=== PATIENT | female | born 1970 | race Caucasian/White ===

== ENCOUNTER → 2024-02-02 08:52 | Outpatient (REF) | payer BC, SELFPAY ==
[2024-02-02 09:50] LABS: ALT (SGPT) 22 U/L (0-35); AST (SGOT) 22 U/L (14-36); Alkaline Phosphatase 91 U/L (38-126); Blood Urea Nitrogen 10 mg/dl (7-17); Calcium 9.2 mg/dl (8.4-10.2); Carbon Dioxide 25 mmol/L (22-30); Chloride 104 mmol/L (98-107); Glucose 159 mg/dl (70-99); HDL Cholesterol 42 mg/dl; Potassium 4.6 mmol/L (3.5-5.1); Sodium 138 mmol/L (135-145); Total Bilirubin 0.8 mg/dl (0.2-1.3); eGFR > 60.00
[2024-02-02 10:27] LABS: TSH 2.21 uIU/ml (0.47-4.68)
[2024-02-02 10:41] LABS: Total Cholesterol 331 mg/dl (50-199)
[2024-02-02 10:49] LABS: Triglyceride 1043 mg/dl (10-149)
[2024-02-02 11:13] LABS: LDL Cholesterol, Direct 52 mg/dl
[2024-02-02 13:47] LABS: Vitamin D, 25-OH*** 17.3 ng/mL (30-80)
[2024-02-03 08:59] LABS: Glycohemoglobin (HgbA1c) 7.4 % (4.0-5.6)
== END ==
LOC: REG 08:52
PROVIDERS: ATTENDING PHYSICIAN Family Medicine
DX: E08.00 Diabetes mellitus due to underlying condition with hyperosmolarity without nonketotic hyperglycemic-hyperosmolar coma (NKHHC) (principal); E11.9 Type 2 diabetes mellitus without complications; E55.9 Vitamin D deficiency, unspecified; Z00.01 Encounter for general adult medical examination with abnormal findings; R53.83 Other fatigue
CPT/HCPCS: 36415; 80053; 80061; 82306; 83036; 83721; 84443

== ENCOUNTER → 2024-03-10 08:14 | Outpatient (REF) | payer BC, SELFPAY | LOC: WDC 08:14 | PROVIDERS: ATTENDING PHYSICIAN Family Medicine | DX: Z12.31 Encounter for screening mammogram for malignant neoplasm of breast (principal) | CPT/HCPCS: 77063; 77067 ==

== ENCOUNTER → 2024-05-24 08:53 | Outpatient (REF) | payer BC, SELFPAY ==
[2024-05-24 10:04] LABS: ALT (SGPT) 28 U/L (0-35); AST (SGOT) 26 U/L (14-36); Albumin 4.3 g/dl (3.5-5.0); Alkaline Phosphatase 59 U/L (38-126); Blood Urea Nitrogen 10 mg/dl (7-17); Calcium 9.4 mg/dl (8.4-10.2); Carbon Dioxide 28 mmol/L (22-30); Chloride 107 mmol/L (98-107); Glucose 120 mg/dl (70-99); HDL Cholesterol 58 mg/dl; LDL Cholesterol, Calculated 100 mg/dl; Potassium 4.5 mmol/L (3.5-5.1); Sodium 145 mmol/L (135-145); Total Bilirubin 0.4 mg/dl (0.2-1.3); Total Cholesterol 182 mg/dl (50-199); Total Protein 7.4 g/dl (6.3-8.2); Triglyceride 124 mg/dl (10-149); Very Low Density Lipoprotein 24 mg/dl (0-30); eGFR > 60.00
[2024-05-24 10:39] LABS: Glycohemoglobin (HgbA1c) 6.4 % (4.0-5.6)
== END ==
LOC: REG 08:53
PROVIDERS: ATTENDING PHYSICIAN Family Medicine
DX: E78.2 Mixed hyperlipidemia (principal); E11.59 Type 2 diabetes mellitus with other circulatory complications
CPT/HCPCS: 36415; 80053; 80061; 83036

== ENCOUNTER → 2024-09-18 20:26 | Outpatient (REF) | payer BC, SELFPAY | LOC: MRI 3T 20:26 | PROVIDERS: ATTENDING PHYSICIAN Specialist; FAMILY PHYSICIAN Family Medicine | DX: M25.561 Pain in right knee (principal) | CPT/HCPCS: 73721 ==

== ENCOUNTER 2024-11-03 06:05 | Day surgery (SDC) | payer BC, SELFPAY ==
--- NOTE | 2024-09-29 13:18 | CM ---
CM reviewed medical records. CM confirmed demographics. Patient lives independently with . Patient does not have a history of VN or SNF. Patient does not rely on any assistive devices at this time. [place] does have a two level home and
complains of difficulty negotiating stairs due to pain. Patient is active with her PCP. Patient uses [facility] [place]. [facility] Patient was given information on outpatient PT services at [facility] .
Plan: Home with [facility] and then transition to Outpatient [facility] Rehab services.
[2024-10-10 14:00] VITALS: BMI 31.3
[2024-10-10 14:09] LABS: Hemoglobin 11.6 g/dL (12.0-16.0); Mean Corp Hgb Conc. 34.1 g/dL (33.0-37.0); Mean Corpuscular Hgb 30.4 pg (27.0-31.0); Mean Corpuscular Volume 89.2 fL (81.0-99.0); Mean Platelet Volume 11.5 fL (7.4-10.4); Platelet Count 362 10^3/uL (130-400); Red Blood Cell Count 3.81 10^6/uL (4.20-5.40); Red Cell Dist. Width 14.1 % (11.5-14.5); White Blood Cell Count 7.8 10^3/uL (4.8-10.8)
[2024-10-10 14:25] LABS: ALT (SGPT) 33 U/L (0-35); AST (SGOT) 23 U/L (14-36); Alkaline Phosphatase 50 U/L (38-126); Blood Urea Nitrogen 14 mg/dl (7-17); Calcium 9.6 mg/dl (8.4-10.2); Carbon Dioxide 27 mmol/L (22-30); Chloride 109 mmol/L (98-107); Estimated Creatinine Clearance 101 ml/min; Glucose 104 mg/dl (70-99); Potassium 4.6 mmol/L (3.5-5.1); Sodium 144 mmol/L (135-145); Total Bilirubin 0.5 mg/dl (0.2-1.3); eGFR > 60.00
[2024-10-10 15:49] VITALS: BMI 31.3
[2024-10-11 08:47] LABS: Glycohemoglobin (HgbA1c) 6.1 % (4.0-5.6)
--- NOTE | 2024-10-15 10:24 | VNURNOTE ---
Patient is scheduled for an elective R TKA on 11/03 - she is a same day patient with Dr Ortiz. Spoke with patient prior to surgery. Introduced role of [facility] VN Liaison. Patient reports that she lives with her spouse in a MULTI story home.
There are 0 steps to enter and a flight of steps to the second floor.
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 She currently functions independently. She has a rolling walker.
PCP is Dr Kelton Kearns .
Discussed [facility] joint protocol and post surgical plans.
Reviewed that she will have VN services initially and will then start outpatient PT.
Patient selects [facility] VN for home care needs and will go to the [facility] at for outpatient PT, start date TBD. Advised patient to call outpt PT and request start date end for the of surgical week (11/06 or 11/07).
Patient is in agreement with plan and states that her spouse will be home with her. Advised to bring RW with her day of surgery. Referral placed in [facility].
Plan: [facility] VN per [facility] joint protocol then outpt PT TBD.
[2024-11-03] VITALS (24 sets, daily range): BP systolic 94–161; BP diastolic 56–93; PULSE 80; O2SAT 100; BMI 31.3
[2024-11-03 07:21] LABS: Glucose - Point of Care 103 mg/dl (70-99)
--- NOTE | 2024-11-03 07:21 | W.DS.TRANS ---
DC Summary - [employer]
-
Discharge Instructions:
Sleep Apnea Risk Low
Discharge Diagnosis/Procedures R TKA Dr. Ortiz 11/03/24
Diet Diabetic, Carb Controlled
Activity With Walker
Additional Activity Adequate hydration, minimize Oxy and wear TEDs
stockings to prevent low blood pressure/
dizziness
Driving Restrictions No driving
Bathing Restrictions OK to Shower
Other Services PT
Instructions:
Stand-Alone Forms: SDS Total Hip and Knee D/C
Changes to Home Medications: Yes
Discharge Medications:
DC Medications w/original date entered in [employer]
fenofibrate 160 mg tablet 160 mg PO HS 10/07/24
semaglutide 0.25 mg or 0.5 mg (2 mg/3 mL) subcutaneous pen injector (Ozempic) 0.5 mg SC QWEEK 10/07/24
zolpidem 10 mg tablet 10 mg PO HS Sleep 10/07/24
cefadroxil 500 mg capsule 500 mg PO BID infection prevention #14 caps 10/10/24
celecoxib 200 mg capsule 200 mg PO DAILY Anti-inflammatory #14 caps 10/10/24
famotidine 20 mg tablet 20 mg PO HS GI prophylaxis #30 tabs 10/10/24
gabapentin 300 mg capsule 300 mg PO HS sleep/pain #10 caps 10/10/24
mupirocin 2 % topical ointment 1 applic topical BID infection prevention #1 tube 10/10/24
ondansetron 4 mg disintegrating tablet 4 mg PO Q6H PRN n/v #20 tabs 10/10/24
oxycodone 5 mg tablet 5 mg PO Q6H PRN 1 tab moderate pain, 2 tabs severe pain #30 tabs 10/10/24
Saccharomyces boulardii 250 mg capsule (Florastor) 250 mg PO BID #1 cap 11/03/24
acetaminophen 500 mg tablet 1,000 mg (2 x 500 mg) PO QID #0 tabs 11/03/24
aspirin 325 mg tablet 325 mg PO DAILY blood clot prevention #1 tab 11/03/24
docusate sodium 100 mg capsule (Colace) 100 mg PO BID stool softner #1 cap 11/03/24
magnesium hydroxide 400 mg/5 mL oral suspension (Milk of Magnesia) 30 ml PO HS PRN constipation #1 mL 11/03/24
sennosides 8.6 mg tablet (Senokot) 17.2 mg (2 x 8.6 mg) PO BID laxative #2 tabs 11/03/24
Home Medication Changes
cefadroxil 500 mg capsule 500 mg PO BID infection prevention #14 caps 10/10/24
celecoxib 200 mg capsule 200 mg PO DAILY Anti-inflammatory #14 caps 10/10/24
famotidine 20 mg tablet 20 mg PO HS GI prophylaxis #30 tabs 10/10/24
gabapentin 300 mg capsule 300 mg PO HS sleep/pain #10 caps 10/10/24
mupirocin 2 % topical ointment 1 applic topical BID infection prevention #1 tube 10/10/24
ondansetron 4 mg disintegrating tablet 4 mg PO Q6H PRN n/v #20 tabs 10/10/24
oxycodone 5 mg tablet 5 mg PO Q6H PRN 1 tab moderate pain, 2 tabs severe pain #30 tabs 10/10/24
Saccharomyces boulardii 250 mg capsule (Florastor) 250 mg PO BID #1 cap 11/03/24
acetaminophen 500 mg tablet 1,000 mg (2 x 500 mg) PO QID #0 tabs 11/03/24
aspirin 325 mg tablet 325 mg PO DAILY blood clot prevention #1 tab 11/03/24
docusate sodium 100 mg capsule (Colace) 100 mg PO BID stool softner #1 cap 11/03/24
magnesium hydroxide 400 mg/5 mL oral suspension (Milk of Magnesia) 30 ml PO HS PRN constipation #1 mL 11/03/24
sennosides 8.6 mg tablet (Senokot) 17.2 mg (2 x 8.6 mg) PO BID laxative #2 tabs 11/03/24
Pending Results: No
[2024-11-03] MEDS: TYLENOL 650 MG PO (07:23)
[2024-11-03] MEDS: CELEBREX 200 MG PO (07:24)
[2024-11-03] MEDS: NORMOSOL-R/PLASMALYTE-A 1000 IV (07:24)
--- NOTE | 2024-11-03 07:38 | SUR.OPER ---
Patients ring (wedding band) given to .
[2024-11-03 10:50] LABS: Glucose - Point of Care 112 mg/dl (70-99)
[2024-11-03] MEDS: ROXICODONE 5 MG PO (12:34)
[2024-11-03] MEDS: ANCEF 5 IV (12:45)
--- NOTE | 2024-11-03 12:58 | W.PN.ORTHO ---
Addendum entered and electronically signed by Jamila Lind PA-C 11/03/24 15:15:
Patient orthostatic--Midodrine added-minimize opioid-orthostatic vitals 1hour after Midodrine dose and re-assess.-Amission orders placed in the event she stays overnight
Original Note:
Today's Communication / Plan
-
d/c
Assessment
.
Distal Motor Intact: Yes
Dressing:
Clean, dry and intact.
Plan
.
Surgery / Date: R TKA 11/03/24
DVT Prophylaxis: Aspirin
Activity:
Out of bed.
PT/OT
Discharge Plan: Home w/ Outpatient PT
Subjective
.
.:
Patient resting comfortably in PACU
Vital Signs and Labs
.
Vital Signs and Labs:
Lab Results
10/10/24 12:30
10/10/24 12:30
Temp Pulse Resp BP Pulse Ox
97.1 F 84 13 131/81 99
11/03/24 11:30 11/03/24 11:37 11/03/24 11:30 11/03/24 11:37 11/03/24 11:37
Physical Exam
-
HEENT: No pallor, cyanosis, or jaundice. Throat clear.
NECK: Supple. No JVD.
RESPIRATORY: Lungs clear to auscultation.
CVS: S1, S2 normal. RRR.� No murmur, rub or gallop.
ABDOMEN: Soft, non-tender. No distension. BS+/normal.
EXTREMITIES: strength equal, no calf pain with palpation
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 No focal deficits. 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
[2024-11-03] MEDS: TYLENOL 1000 MG PO (13:40)
[2024-11-03] MEDS: ProAmatine 5 MG PO (15:01)
[2024-11-03] MEDS: DECADRON 4 MG IV (15:47)
[2024-11-03] MEDS: TORADOL 15 MG IV (15:52)
== END 2024-11-03 16:38 | disposition home or self-care (01) ==
LOC: SDS 06:05
PROVIDERS: ATTENDING PHYSICIAN Specialist; FAMILY PHYSICIAN Family Medicine; OTHER PHYSICIAN Physician Assistant Medical
DX: M17.11 Unilateral primary osteoarthritis, right knee (principal); E66.9 Obesity, unspecified; Z68.35 Body mass index [BMI] 35.0-35.9, adult
CPT/HCPCS: 27447; C1776; 36415; 73560; 80053; 82962; 83036; 85027; 86850; 86900; 86901; 87070; 93005; 97116; 97163; C1713

== ENCOUNTER 2024-11-14 14:18 | Outpatient (RCR) | payer BC, SELFPAY | END 2024-11-14 23:59 | disposition home or self-care (01) | LOC: RPT 14:18 | PROVIDERS: ATTENDING PHYSICIAN Specialist; FAMILY PHYSICIAN Family Medicine | DX: Z47.1 Aftercare following joint replacement surgery (principal); Z96.651 Presence of right artificial knee joint | CPT/HCPCS: 97110; 97140; 97162; 97535 ==

== ENCOUNTER 2024-12-12 13:37 | Outpatient (RCR) | payer BC, SELFPAY | END 2024-12-12 23:59 | disposition home or self-care (01) | LOC: RPT 13:37 | PROVIDERS: ATTENDING PHYSICIAN Specialist; FAMILY PHYSICIAN Family Medicine | DX: Z47.1 Aftercare following joint replacement surgery (principal); R20.0 Anesthesia of skin; R26.89 Other abnormalities of gait and mobility; M25.561 Pain in right knee; M62.81 Muscle weakness (generalized); Z73.6 Limitation of activities due to disability; Z96.651 Presence of right artificial knee joint | CPT/HCPCS: 97010; 97110; 97112; 97140; 97530 ==

== ENCOUNTER → 2024-12-27 09:20 | Outpatient (REF) | payer BC, SELFPAY ==
[2024-12-27 10:02] LABS: Hematocrit 37.9 % (37.0-47.0); Hemoglobin 12.4 g/dL (12.0-16.0); Mean Corp Hgb Conc. 32.7 g/dL (33.0-37.0); Mean Corpuscular Volume 90.2 fL (81.0-99.0); Nucleated Red Blood Cells % 0 %; Platelet Count 364 10^3/uL (130-400); Red Cell Dist. Width 13.2 % (11.5-14.5)
[2024-12-27 10:24] LABS: ALT (SGPT) 34 U/L (0-35); AST (SGOT) 25 U/L (14-36); Albumin 4.6 g/dl (3.5-5.0); Alkaline Phosphatase 50 U/L (38-126); Blood Urea Nitrogen 12 mg/dl (7-17); Calcium 9.7 mg/dl (8.4-10.2); Carbon Dioxide 26 mmol/L (22-30); Chloride 110 mmol/L (98-107); Glucose 95 mg/dl (70-99); HDL Cholesterol 60 mg/dl; LDL Cholesterol, Calculated 101 mg/dl; Potassium 4.5 mmol/L (3.5-5.1); Sodium 143 mmol/L (135-145); Total Protein 7.8 g/dl (6.3-8.2); Very Low Density Lipoprotein 38 mg/dl (0-30); eGFR > 60.00
[2024-12-27 10:42] LABS: Vitamin D, 25-OH*** 24.6 ng/mL (30-80)
[2024-12-27 10:45] LABS: Microalbumin, Random Urine 1.1 mg/dl (0.6-1.7)
[2024-12-27 10:55] LABS: TSH 1.15 uIU/ml (0.47-4.68)
[2024-12-27 11:56] LABS: Glycohemoglobin (HgbA1c) 5.5 % (4.0-5.6)
== END ==
LOC: REG 09:20
PROVIDERS: ATTENDING PHYSICIAN Family Medicine
DX: E11.69 Type 2 diabetes mellitus with other specified complication (principal); E55.9 Vitamin D deficiency, unspecified; R53.83 Other fatigue; E78.5 Hyperlipidemia, unspecified
CPT/HCPCS: 36415; 80053; 80061; 82043; 82306; 83036; 84443; 85025

== ENCOUNTER 2025-01-15 15:18 | Outpatient (RCR) | payer BC, SELFPAY | END 2025-01-15 23:59 | disposition home or self-care (01) | LOC: RPT 15:18 | PROVIDERS: ATTENDING PHYSICIAN Specialist; FAMILY PHYSICIAN Family Medicine | DX: Z47.1 Aftercare following joint replacement surgery (principal); Z96.651 Presence of right artificial knee joint; R20.0 Anesthesia of skin; R26.89 Other abnormalities of gait and mobility; M25.561 Pain in right knee; M62.81 Muscle weakness (generalized); Z73.6 Limitation of activities due to disability | CPT/HCPCS: 97110; 97112; 97140; 97530 ==

== ENCOUNTER 2025-02-10 13:25 | Outpatient (RCR) | payer BC, SELFPAY | END 2025-02-10 23:59 | disposition home or self-care (01) | LOC: RPT 13:25 | PROVIDERS: ATTENDING PHYSICIAN Specialist; FAMILY PHYSICIAN Family Medicine | DX: Z47.1 Aftercare following joint replacement surgery (principal); R20.0 Anesthesia of skin; R26.89 Other abnormalities of gait and mobility; M25.561 Pain in right knee; M62.81 Muscle weakness (generalized); Z96.651 Presence of right artificial knee joint; Z73.6 Limitation of activities due to disability | CPT/HCPCS: 97110; 97112; 97140; 97530 ==

== ENCOUNTER 2025-03-04 13:29 | Outpatient (RCR) | payer BC, SELFPAY | END 2025-03-05 06:22 | disposition home or self-care (01) | LOC: RPT 13:29 | PROVIDERS: ATTENDING PHYSICIAN Specialist; FAMILY PHYSICIAN Family Medicine | DX: Z47.1 Aftercare following joint replacement surgery (principal); M25.561 Pain in right knee; M62.81 Muscle weakness (generalized); Z73.6 Limitation of activities due to disability; R20.0 Anesthesia of skin; R26.89 Other abnormalities of gait and mobility; Z96.651 Presence of right artificial knee joint | CPT/HCPCS: 97110; 97112; 97530 ==